=== PATIENT | male | born 1960 | race Caucasian/White ===

== ENCOUNTER 2024-05-10 09:33 | Emergency (ER) | payer OTHER, SELFPAY ==
[2024-05-10 09:39] VITALS: BP 163/92
[2024-05-10 10:06] VITALS: BP 145/93
--- NOTE | 2024-05-10 10:08 | ED.GENMED ---
History of Present Illness
General
Chief Complaint: Abdominal Pain
Source: patient
Exam Limitations: none
Time Seen by Provider: 05/10/24 09:44
Nursing documentation reviewed up to this point in time: agreed with
History of Present Illness
History of Present Illness:
PT IS A 64 Y/O M
iwth h/o thn hld
h/o diverticulitis, never complicating
here with LLQ pain x 3-4 days, worsening
tried a laxative without relief
feels similar to previous divertic
went to and was sent here for w/u
pt has not had fever, nauesa, vomtiing, diarrhea, bloody stool
no urinary symptoms
Past History
Past History
ED Past Medical History: Cancer (Tonsillar cancer), HTN, Hypercholesterolemia, Other (Diverticulosis/diverticulitis) and Other (Tonsillar cancer which was treated with radical lymphadenectomy, chemotherapy, and radiation in 2006. Patient is cancer
free at current)
ED Past Surgical History: Appendectomy, Orthopedic (Right elbow nerve repair) and Other (Right neck dissection for tonsillar carcinoma; umbilical hernia repair)
Social History
Tobacco: Non-smoker
Alcohol: Daily (2-3 glasses of wine per day)
Personal:
Living: with family
Employment: Employed
Family History
Family History: Negative Early CAD or CAD
Review of Systems
Review of Systems
Allergies reviewed?: Yes
All Other Systems: Not applicable
Phy Exam
Physical Exam
Physical Exam:
GENERAL: Alert , in no apparent distress
EYE: pupils equal and reactive
NECK: Supple
ENT: o/p clr, mmm.
CARDIAC: Regular rate and rhythm .
LUNGS: Clear breath sounds bilaterally, no acute respiratory distress, no wheezes/rales/rhonchi
ABDOMEN: Soft, mod left lower quad tendenress, ovluntary guarding; no rebound, no cvat, normal bowel sounds
NEUROLOGICAL: Alert and oriented, no focal neuro deficits
SKIN: Warm and dry, skin intact.
MUSCULOSKELETAL: No edema, well perfused.
PSYCH: Normal and appropriate interaction.
Course
Orders/Labs/Results
Orders:
Orders
05/10/24 10:01
CT Abd/Pel (IV only)-[facility] only Urgent
Comment:
Reason For Exam: llq pain, guarding
Ketorolac [Toradol] 15 mg IV NOW STA
05/10/24 10:02
0.9% Sodium Chloride 1000 ml [Nss] 1,000 ml IV BOLUS
05/10/24 10:15
Complete Blood Count/With Diff Urgent
Comprehensive Metabolic Panel Urgent
Urinalysis Reflex To Culture Urgent
Date Specimen was Collected: 05/10/24
Time Specimen was Collected: 10:11
05/10/24 11:50
Acetaminophen [Tylenol] 1,000 mg PO NOW STA
Amoxicillin 875 mg/Clav 125 mg [Augmentin 875 mg/125 mg] 1 tablet PO NOW STA
Abnormal Lab Results
05/10/24
10:15
RBC 4.46 L 10^6/uL
(4.70-6.10)
MCH 32.5 H pg
(27.0-31.0)
Lymphocytes % 17.4 L %
(20.5-51.1)
Glucose 101 H mg/dl
(70-99)
Urine Ketones Trace A
(Negative)
05/10/24 10:15
05/10/24 10:15
Vital Signs
Initial and Last Documented VS:
Initial Vital Signs
Temp Pulse Resp BP Pulse Ox
97.9 F 58 18 163/92 99
05/10/24 09:39 05/10/24 09:39 05/10/24 09:39 05/10/24 09:39 05/10/24 09:39
Last Documented Vital Signs
Temp Pulse Resp BP Pulse Ox
97.9 F 54 16 145/93 95
05/10/24 09:39 05/10/24 10:15 05/10/24 10:15 05/10/24 10:15 05/10/24 10:15
MDM/Problems Addressed
Differential Diagnosis Includes:
divertic, divertic abscess
MDM/Problems Addressed:
64-year-old male with a history of hypertension, high cholesterol and diverticulitis presents for very similar symptoms with left lower quadrant pain x 2 to 3 days, worsening in discomfort. No fevers or chills or bloody diarrhea. Patient has not
tried a clear liquid diet. He went to urgent care and was sent here for evaluation. He has mild to moderate tenderness with mild voluntary guarding in the left lower quadrant but otherwise no rebound. There is normal vital signs. His lab work
shows a normal white blood cell count and his CAT scan shows acute uncomplicated sigmoid diverticulitis. He will be treated with Augmentin as this has given him good results previously, return precautions
*Critical Care Note
Total Time (30-74mins, 75-104mins- exclusive of procedures): Not Applicable
ED Attending Note
-
Portions of this chart may have been created with voice recognition software.� Occasional wrong word or��sound alike� substitutions may have occurred due to the inherent limitations of voice recognition software.
Discharge Plan
Departure
Patient Disposition: Home (Routine Discharge)
Date of Disposition: 05/10/24
Time of Disposition: 11:48
Patient with high blood pressure during this ER visit?: Yes
Condition: Fair
Covid-19: Not Applicable
Discharge Problem:
Diverticulitis
Instructions: Clear Liquid Diet, Diverticulitis (DC), BLOOD PRESSURE
Prescriptions:
New
amoxicillin-pot clavulanate 875-125 mg tablet
1 tab PO BID Qty: 20 0RF
No Action
LISINOPRIL
20 mg PO DAILY
PRAVASTATIN SODIUM
80 mg PO DAILY
oxycodone-acetaminophen [Percocet] 1 EACH tablet
1 ea PO Q4H PRN (Reason: pain)
docusate sodium [Colace] 100 MG capsule
100 mg PO TID PRN (Reason: constipation)
amoxicillin-pot clavulanate 1 TABLET tablet
1 tab PO Q12 Qty: 20 0RF
amoxicillin-pot clavulanate 875-125 mg tablet
1 tab PO BID Qty: 20 0RF
Referrals:
Tom Max MD [Family Provider] - Follow up in 2-3 days
Activity Restrictions/Additional Instructions:
YOUR CAT SCAN SHOWS MILD DIVERTICULITIS
YOU SHOULD EAT A CLEAR LIQUID DIET FOR 24-48 HOURS TO GIVE YOUR BOWELS REST.
TAKE AUGMENTIN TWICE A DAY FO R10 DAYS
YOU CAN FOLLOW UP WITH YOUR FAMILY DOCTOR WELL A GI DOCTOR
RETURN FOR: FEVER, WORSE PAIN, VOMITING, INABILITY TO TOLERATE LIQUIDS, BLOODY DIARRHEA OR ANY CONCERNS.
TYLENOL EVERY 6 HOURS FOR PAIN
MOTRIN EVERY 8 HOURS FOR JERED
Interventions
Interventions:
*Risk Screen - Suicide Last Done: 05/10/24 09:39
*General Assessment Last Done: 05/10/24 09:39
*Neglect/Abuse Screening Last Done: 05/10/24 09:39
ED- Fall Risk Assessment Last Done: 05/10/24 10:16
*ED COVID-19 Vaccine History Last Done: 05/10/24 10:16
*Nursing Disposition Last Done: 05/10/24 12:27
WF-Hflgwv-Anfruzvtjw Assessment Last Done: 05/10/24 10:16
Discharge Date and Time
Discharge Date/Time: 05/10/24 12:37
Print Language: VINCENTIAN
[2024-05-10] MEDS: TORADOL 15 MG IV (10:13)
[2024-05-10] MEDS: NSS 1000 IV (10:14)
[2024-05-10 10:15] VITALS: BP 145/93; BMI 30.7
[2024-05-10 10:34] LABS: % Basophils 0.4 % (0-2); % Eosinophils 2.2 % (0-6); % Immature Granulocytes 0.3 % (0-0.5); % Lymphocytes 17.4 % (20.5-51.1); % Monocytes 7.2 % (1.7-9.3); % Neutrophils 72.5 % (42.2-75.2); Absolute Eosinophils 0.2 10^3/uL (0-0.7); Absolute Lymphocytes 1.2 10^3/uL (1.2-3.4); Absolute Monocytes 0.5 10^3/uL (0.1-0.6); Absolute Neutrophils 4.9 10^3/uL (1.4-6.5); Hematocrit 40.3 % (39.0-52.0); Hemoglobin 14.5 g/dL (13.0-18.0); Mean Corpuscular Hgb 32.5 pg (27.0-31.0); Mean Corpuscular Volume 90.4 fL (80.0-94.0); Mean Platelet Volume 9.6 fL (7.4-10.4); Nucleated Red Blood Cells % 0 % (-); Platelet Count 237 10^3/uL (130-400); Red Blood Cell Count 4.46 10^6/uL (4.70-6.10); Red Cell Dist. Width 11.9 % (11.5-14.5); White Blood Cell Count 6.8 10^3/uL (4.8-10.8)
[2024-05-10 10:49] LABS: ALT (SGPT) 38 U/L (0-50); AST (SGOT) 31 U/L (17-59); Albumin 4.8 g/dl (3.5-5.0); Alkaline Phosphatase 50 U/L (38-126); Blood Urea Nitrogen 16 mg/dl (9-20); Calcium 9.9 mg/dl (8.4-10.2); Carbon Dioxide 27 mmol/L (22-30); Chloride 102 mmol/L (98-107); Estimated Creatinine Clearance 104 ml/min; Glucose 101 mg/dl (70-99); Potassium 3.9 mmol/L (3.5-5.1); Sodium 138 mmol/L (135-145); Total Bilirubin 0.7 mg/dl (0.2-1.3); eGFR > 60.00
[2024-05-10 10:50] LABS: Urine Albumin Negative (Neg - Trace); Urine Bilirubin Negative (Negative); Urine Character Clear (Clear); Urine Color Yellow; Urine Glucose Negative (Negative); Urine Ketone Trace (Negative); Urine Leukocyte Negative (Negative); Urine Nitrite Negative (Negative); Urine Occult Blood Negative (Negative); Urine Urobilinogen Negative (Neg - 1+); Urine pH 6.5 (5.0-9.0)
[2024-05-10] MEDS: TYLENOL 1000 MG PO (12:20)
[2024-05-10] MEDS: AUGMENTIN 875 MG/125 MG 1 TABLET PO (12:21)
== END 2024-05-10 12:37 | disposition home or self-care (01) ==
LOC: EMR 09:33
PROVIDERS: Physician Assistant; EMERGENCY PHYSICIAN Emergency Medicine; FAMILY PHYSICIAN Internal Medicine
DX: R10.32 Left lower quadrant pain (principal); I10 Essential (primary) hypertension; E78.00 Pure hypercholesterolemia, unspecified; Z90.49 Acquired absence of other specified parts of digestive tract; Z85.818 Personal history of malignant neoplasm of other sites of lip, oral cavity, and pharynx
CPT/HCPCS: 99284; 96374; 96361; 74177; 80053; 81003; 85025; Q9967

== ENCOUNTER → 2024-06-26 11:39 | Outpatient (REF) | payer SELFPAY | LOC: RAD 11:39 | PROVIDERS: ATTENDING PHYSICIAN Family Medicine | DX: I10 Essential (primary) hypertension (principal); E78.2 Mixed hyperlipidemia | CPT/HCPCS: 75571 ==

== ENCOUNTER → 2025-07-11 09:21 | Outpatient (REF) | payer OTHER, SELFPAY | LOC: RAD 09:21 | PROVIDERS: ATTENDING PHYSICIAN Family Medicine | DX: M25.532 Pain in left wrist (principal); S69.92XA Unspecified injury of left wrist, hand and finger(s), initial encounter | CPT/HCPCS: 73110 ==

== ENCOUNTER 2025-08-05 06:25 | Day surgery (SDC) | payer OTHER, SELFPAY | END 2025-08-05 11:45 | disposition home or self-care (01) | LOC: GI 06:25 | PROVIDERS: ATTENDING PHYSICIAN Internal Medicine Gastroenterology | DX: Z12.11 Encounter for screening for malignant neoplasm of colon (principal); R19.5 Other fecal abnormalities; K57.30 Diverticulosis of large intestine without perforation or abscess without bleeding; K64.8 Other hemorrhoids; D12.1 Benign neoplasm of appendix | CPT/HCPCS: 45380; 88305 ==

== ENCOUNTER → 2025-08-28 09:52 | Outpatient (REF) | payer OTHER, SELFPAY | LOC: WDC 09:52 | PROVIDERS: ATTENDING PHYSICIAN Family Medicine | DX: N63.20 Unspecified lump in the left breast, unspecified quadrant (principal) | CPT/HCPCS: 76642; 77062; 77066 ==

== ENCOUNTER → 2025-09-30 15:04 | Outpatient (REF) | payer OTHER, SELFPAY | LOC: RAD 15:04 | PROVIDERS: ATTENDING PHYSICIAN Family Medicine | DX: M79.622 Pain in left upper arm (principal) | CPT/HCPCS: 71270; Q9967 ==

== ENCOUNTER → 2025-10-01 12:10 | Outpatient (REF) | payer OTHER, SELFPAY | LOC: RCS 12:10 | PROVIDERS: ATTENDING PHYSICIAN Family Medicine | DX: M79.622 Pain in left upper arm (principal) | CPT/HCPCS: 93005 ==

== ENCOUNTER → 2025-10-03 09:37 | Outpatient (REF) | payer OTHER, SELFPAY | LOC: RCS 09:37 | PROVIDERS: ATTENDING PHYSICIAN Family Medicine | DX: M79.622 Pain in left upper arm (principal) | CPT/HCPCS: 93017; 93350 ==